=== PATIENT | male | born 1985 | race Caucasian/White ===

== ENCOUNTER 2019-01-17 01:42 | Emergency (ER) | payer OTHER, SELFPAY ==
[~2019-01-17] VITALS: Ht 177.8 cm; Wt 80.0 kg
[2019-01-17] MEDS ORDERED: KETAMINE HCL 50 MG/ML 10ML ONE (01:56)
[2019-01-17] MEDS ORDERED: MORPHINE SULFATE 10 MG/ML CPJ ONE (01:57)
[2019-01-17] MEDS ORDERED: ONDANSETRON HCL 4MG/2ML INJ ONE (01:58)
[2019-01-17 02:15] VITALS: BP 132/70
[2019-01-17] MEDS ORDERED: SODIUM CHLORIDE 0.9% 1,000 ML IV ONE ×2 (02:21)
[2019-01-17] MEDS ORDERED: MORPHINE SULFATE 4 MG/ML CPJ (NOT FOR IM USE) IV STA (02:21)
[2019-01-17] MEDS ORDERED: ONDANSETRON HCL 4MG/2ML INJ IV STA (02:21)
[2019-01-17] MEDS ORDERED: KETAMINE HCL 50 MG/ML 10ML IV ONE (02:30)
[2019-01-17] MEDS ORDERED: LIDOCAINE HCL/EPINEPHRINE 1%-EPI 1:100,000 30 ML VIAL INFIL ONE (02:30)
== END 2019-01-17 02:23 | disposition short-term general hospital (02) ==
LOC: EDSEX 01:42 → ER 01:42
DX: S21.111A Laceration without foreign body of right front wall of thorax without penetration into thoracic cavity, initial encounter (principal); W26.9XXA Contact with unspecified sharp object(s), initial encounter; Y93.9 Activity, unspecified; Y92.9 Unspecified place or not applicable
CPT/HCPCS: 32551; 71045; 96374; 96375; 99291; J2270; J2405; J3490; J7030; Z7610